=== PATIENT | female | born 1985 | race Caucasian/White ===

== ENCOUNTER → 2024-12-17 | Outpatient (CLI) | payer OTHER ==
[~2024-12-17] MED LIST: PROHANCE 279.3MG/ML 5ML VIAL ONE
== END ==
LOC: M PLAIMG 07:58
PROVIDERS: ATTEND Physician Assistant
DX: R92.30 Dense breasts, unspecified (principal); Z80.3 Family history of malignant neoplasm of breast
CPT/HCPCS: A9576; C8908